=== PATIENT | male | born 1935 | race Caucasian/White ===

== ENCOUNTER → 2016-10-11 | Outpatient (CLI) | payer MEDICARE, OTHER | END | disposition home or self-care (01) | LOC: GMAB 14:37 | PROVIDERS: ATTEND Family Medicine | DX: R41.82 Altered mental status, unspecified (principal) ==

== ENCOUNTER → 2016-10-18 | Outpatient (CLI) | payer MEDICARE, OTHER ==
--- NOTE | 2016-10-18 14:48 | MRI ---
EXAM DESCRIPTION: Brain w/oContrast CLINICAL HISTORY: ALTERED MENTAL STATUS COMPARISON: None available TECHNIQUE: Non contrast MRI of the brain is performed according to our usual protocol including multiplanar multi sequence technique. FINDINGS: The midline structures demonstrate some pontine and cerebellar atrophy. This is confirmed on the axial images. Multiple cerebellar lacunar infarcts noted bilaterally. There is moderate involutional changes of the cerebrum. This results in prominence of the sulci and ventricles. Periventricular white matter disease noted. No mass, mass effect or shift. No evidence of an acute infarct on today's study. The gradient sequences reveal no evidence of hemorrhage. Flow voids are maintained on today's study. IMPRESSION: Today's exam demonstrates fairly advanced involutional changes along with periventricular white matter disease and multiple bilateral cerebellar hemisphere lacunar infarcts. No acute infarct on today's exam. Electronically signed by: Ralph Hernandez MD 10/18/2016 2:47 PM [employer]
== END | disposition home or self-care (01) ==
LOC: MRI 10:00
PROVIDERS: ATTEND Family Medicine
DX: R41.82 Altered mental status, unspecified (principal)

== ENCOUNTER → 2016-11-14 | Outpatient (CLI) | payer MEDICARE, OTHER ==
--- NOTE | 2016-11-14 11:49 | US ---
EXAM DESCRIPTION: Abdomen,Complete CLINICAL HISTORY: 80 years,Male,ABDOMEN PAIN COMPARISON: None TECHNIQUE: Multiple real-time sonographic images were obtained of the entire abdomen. FINDINGS: The liver demonstrates normal echotexture. No masses. No cysts. The liver craniocaudal length is not measured cm. The gallbladder demonstrates an anechoic lumen. There are no stones. There is no pericholecystic fluid. The gallbladder wall thickness is unremarkable. No intrahepatic biliary ductal dilatation. The common bile duct measures four mm. The right kidney demonstrates normal cortical echotexture and thickness. There is a large stone measuring about 1.4 x 1.2 x 0.8 cm in the midpole. The right kidney measures 10.2 cm in length. The left kidney demonstrates normal cortical echotexture and thickness. There are no stones, hydronephrosis, or masses. Small parapelvic cyst measuring up to 2.4 x 1 cm but appears to be two or three cyst or a septated cyst. The left kidney measures 9.6 cm in length. The spleen demonstrates normal echotexture. No masses. It measures 8.2 cm in craniocaudal length. The visualized portions of the head and body of the pancreas are unremarkable. No free-fluid in the abdomen. The aorta is unremarkable for age. IMPRESSION: Large echogenic lesion in the midpole right kidney most likely a large stone. And a few small peripelvic midpole cyst in the left kidney.. Electronically signed by: Ariel Dallas MD 11/14/2016 11:49 AM CDT
== END ==
LOC: US 08:58
PROVIDERS: ATTEND Family Medicine
DX: R10.31 Right lower quadrant pain (principal); N28.9 Disorder of kidney and ureter, unspecified

== ENCOUNTER → 2016-11-24 | Outpatient (CLI) | payer MEDICARE, OTHER ==
--- NOTE | 2016-11-25 10:37 | CT ---
Procedure: CT ABDOMEN PELVIS WITHOUT THEN WITH IV CONTRAST Exam date: 11/24/2016 12:00 AM CDT Ordering Provider: LAURENCE CUENCA Clinical Indication: RENAL MASS Comparison: Abdominal ultrasound on November 14, 2016 Technique: Multiple axial helical CT images of the abdomen and pelvis were obtained with and without IV contrast. Oral contrast was not administered. Coronal and sagittal reformatted images were also obtained. Findings: Lung bases are clear and the heart apex within normal limits. No inferior mediastinal abnormality. Inferior osseous structures of the thorax are unremarkable. Bilateral large nonobstructing renal calculi without hydronephrosis or solid enhancing renal mass. No cysts cysts or perinephric fluid collection seen. There is hemiatrophy of the left kidney. The remaining solid abdominal viscera are unremarkable. Stomach and small bowel bowel are within normal limits. Colonic diverticulosis without evidence of diverticulitis. No peritoneal or retroperitoneal masses or adenopathy. No free fluid or pneumoperitoneum. Urinary bladder is unremarkable. No pelvic masses or adenopathy seen. Perirectal fat planes are preserved. Osseous structures of the abdomen and pelvis are nonacute. Advanced lumbar spondylosis. Atherosclerotic calcifications without aneurysmal dilatation. Impression: 1. Bilateral nonobstructing renal calculi without hydronephrosis or renal mass lesion. 2. Other chronic incidental findings as above. Electronically signed by: Nico Leung MD 11/25/2016 10:37 AM CDT
== END | disposition home or self-care (01) ==
LOC: CT 07:54
PROVIDERS: ATTEND Family Medicine
DX: D41.02 Neoplasm of uncertain behavior of left kidney (principal); E83.52 Hypercalcemia

== ENCOUNTER → 2017-03-09 | Outpatient (CLI) | payer MEDICARE, OTHER ==
--- NOTE | 2017-03-12 09:06 | MRI ---
EXAM DESCRIPTION: Brain w/oContrast CLINICAL HISTORY: ALZHEIMERS DEMENTIA COMPARISON: 18 October 2016 TECHNIQUE: Multiplanar multisequence noncontrast imaging FINDINGS: No midline congenital brain anomaly is detected. The exam demonstrates normal flow void in the cerebral vasculature. The sinuses are clear. The orbits as imaged are normal. No mass lesions or mass effect are observed. Mild periventricular increased T2 signal is observed consistent with ischemic demyelination. Exam reveals mild central and cortical atrophy. No diffusion-weighted abnormality is seen. IMPRESSION: Senescent changes are observed. No acute parenchymal abnormality is detected. No significant interval changes noted. Electronically signed by: Ariel Navas MD 03/12/2017 9:04 AM CDT
== END | disposition home or self-care (01) ==
LOC: MRI 07:54
PROVIDERS: ATTEND Family Medicine
DX: G30.9 Alzheimer's disease, unspecified (principal)

== ENCOUNTER → 2017-03-15 | Outpatient (CLI) | payer MEDICARE, OTHER | END | disposition home or self-care (01) | LOC: GMAB 12:27 | PROVIDERS: ATTEND Family Medicine | DX: E83.52 Hypercalcemia (principal); M62.81 Muscle weakness (generalized) ==

== ENCOUNTER → 2017-07-11 | Outpatient (CLI) | payer MEDICARE, OTHER | END | disposition home or self-care (01) | LOC: GMAB 17:23 | PROVIDERS: ATTEND Family Medicine | DX: R29.898 Other symptoms and signs involving the musculoskeletal system (principal) ==

== ENCOUNTER → 2017-11-06 | Outpatient (CLI) | payer MEDICARE, OTHER | LOC: GMAB 10:51 | PROVIDERS: ATTEND Family Medicine | DX: I10 Essential (primary) hypertension (principal); Z12.5 Encounter for screening for malignant neoplasm of prostate | CPT/HCPCS: 84443; G0103 ==

== ENCOUNTER → 2018-08-27 | Outpatient (CLI) | payer MEDICARE, OTHER ==
--- NOTE | 2018-08-27 21:22 | US ---
US THYROID CLINICAL STATEMENT: THYROID NODULE. . No palpable mass. No history of prior thyroid surgery or therapy. COMPARISON: None FINDINGS: Size right thyroid lobe: 3.9 x 2.6 x 1.3 cm Size left thyroid lobe: 4.7 x 1.6 x 1.4 cm Size isthmus: 0.3 cm Estimated total number of nodules greater than or equal to 1 cm: None Nodule 1: Size: 0.8 x 0.8 x 0.7 cm Location: Right Mid Composition: cystic or completely cystic: 0 points Echogenicity: anechoic: 0 points Shape: wider than tall: 0 points Margins: smooth: 0 points Echogenic foci: none: 0 points ACR Total Points: 0; ACR TI-RADS risk category: TR1 - benign nodule Nodule 2: Size: 0.4 x 0.4 x 0.4 cm Location: Right Mid Composition: cystic or completely cystic: 0 points Echogenicity: anechoic: 0 points Shape: wider than tall: 0 points Margins: smooth: 0 points Echogenic foci: none: 0 points ACR Total Points: 0; ACR TI-RADS risk category: TR1 - benign nodule Nodule 3: Size: 0.5 x 0.4 x 0.3 cm Location: Right Upper Composition: cystic or completely cystic: 0 points Echogenicity: anechoic: 0 points Shape: wider than tall: 0 points Margins: smooth: 0 points Echogenic foci: none: 0 points ACR Total Points: 0; ACR TI-RADS risk category: TR1 - benign nodule Nodule 4: Size: 0.3 x 0.3 x 0.2 cm Location: Left Lower Composition: cystic or completely cystic: 0 points Echogenicity: anechoic: 0 points Shape: wider than tall: 0 points Margins: smooth: 0 points Echogenic foci: none: 0 points ACR Total Points: 0; ACR TI-RADS risk category: TR1 - benign nodule The tissue surrounding the thyroid gland showed no evidence of dominant solid mass or distinct cyst. No parenchymal edema or large calcifications. No overlying skin changes. Normal vascularity. IMPRESSION: 1. Multiple cysts bilaterally. ACR TI-RADS 2017 Category TR1. Recommend: No further follow-up.. Recommendations based upon [employer] Best Practice recommendations and ACR TI-RADS 2017 guidelines. Please see below*. 2. Soft tissue around the thyroid gland is unremarkable. *ACR TI-RADS 2017 Recommendations: TR1: No FNA or follow up TR2: No FNA or follow up TR3: FNA if >/= 2.5 cm, follow up if 1.5 - 2.4 cm in 1, 3, and 5 years TR4: FNA if >/= 1.5 cm, follow up if 1.0 - 1.4 cm in 1, 2, 3, and 5 years TR5: FNA if >/= 1.0 cm, follow up if 0.5 - 0.9 cm every year for 5 years ACR TI-RADS recommends that no more than two nodules with the highest ACR TI-RADS total point should be biopsied and no more than four nodules should be followed. Electronically signed by: Nish Oconnor MD 08/27/2018 9:20 PM [facility]
== END ==
LOC: US 14:20
PROVIDERS: ATTEND Family Medicine
DX: E04.1 Nontoxic single thyroid nodule (principal)

== ENCOUNTER → 2019-06-04 | Outpatient (CLI) | payer MEDICARE, OTHER | LOC: GMAE 12:44 | PROVIDERS: ATTEND Family Medicine | DX: I10 Essential (primary) hypertension (principal); E78.2 Mixed hyperlipidemia ==

== ENCOUNTER → 2020-06-16 | Outpatient (CLI) | payer MEDICARE, OTHER | LOC: GMAE 14:47 | PROVIDERS: ATTEND Family Medicine | DX: I10 Essential (primary) hypertension (principal); Z12.5 Encounter for screening for malignant neoplasm of prostate; N39.0 Urinary tract infection, site not specified; R73.09 Other abnormal glucose; E78.2 Mixed hyperlipidemia | CPT/HCPCS: 84443; 87086; G0103 ==

== ENCOUNTER → 2020-06-17 | Outpatient (CLI) | payer MEDICARE, OTHER ==
--- NOTE | 2020-06-18 15:27 | US ---
EXAM DESCRIPTION: Renal: Ultrasound. CLINICAL HISTORY: 84 years Male ACUTE KIDNEY FAILURE. Previous bladder cancer. COMPARISON: None TECHNIQUE: Transcutaneous scanning: Two-dimensional and Doppler modes. FINDINGS: Right kidney measures 9.1 x 5.3 x 5.3 cm; volume 131 ml. Mid-renal cortical thickness 12 mm. .echogenicity. No hydronephrosis No echogenic stones. Echogenic stone 7.7 mm with acoustic shadowing lobulated contour of the kidney with no perinephric fluid. Normal vascularity. Proximal ureter . Left kidney measures 8.0 x 5.5 x 5.5 cm; volume 124.8 ml. Mid-renal cortical thickness 9.6 mm.. Increased cortical echogenicity No hydronephrosis. No echogenic stones. Lobulated contour of the kidney with no perinephric fluid. 6.5 mm echogenic stone with acoustic shadowing. 3.2 mm echogenic stone with acoustic shadowing. Normal vascularity.. Proximal ureter not visualized.. Urinary bladder was visualized. Prevoid volume 90.4 mL. Irregular wall thickening. Ureteral jet in the bladder ureteral jets not seen by color Doppler. Patient did not void. Abdominal aorta: not measured. IMPRESSION: 1. Bilateral kidneys with thinning of the cortex and lobulated capsules. Increased echogenicity of the cortex. This indicates medical renal disease. Bilateral echogenic stones; 7.7 mm in the right kidney and 6.5 mm and the left kidney. No hydronephrosis or perirenal fluid bilaterally. 2. Irregular wall thickening of the urinary bladder. Electronically signed by: Nish Oconnor MD 06/18/2020 3:26 PM [facility]
== END ==
LOC: US 13:59
PROVIDERS: ATTEND Family Medicine
DX: N17.9 Acute kidney failure, unspecified (principal); N28.9 Disorder of kidney and ureter, unspecified; N32.89 Other specified disorders of bladder; N20.0 Calculus of kidney

== ENCOUNTER → 2020-07-02 | Outpatient (CLI) | payer MEDICARE, OTHER | LOC: BFHH 13:09 | PROVIDERS: ATTEND Family Medicine | DX: N39.0 Urinary tract infection, site not specified (principal); I10 Essential (primary) hypertension; R29.6 Repeated falls; I48.0 Paroxysmal atrial fibrillation; I35.0 Nonrheumatic aortic (valve) stenosis ==

== ENCOUNTER 2020-07-13 17:02 | Emergency (ER) | payer MEDICARE, OTHER ==
--- NOTE | 2020-07-13 19:00 | ED.PDOC ---
History of Present Illness - General Chief Complaint: Respiratory Problem Stated Complaint: COVID + Time Seen by Provider: 07/13/20 19:00 Source: family, RN/MD Exam Limitations: no limitations - History of Present Illness Initial Comments: 10 D OF WEAKNESS. POS COVID AT OUTSIDE LAB. NO SOB. NO COUGH. H/O SEVERE DEMENTIA. PRESENT IN ER, WHO IS BEING SEEN FOR POS COVID WELL. DR. FREEDMAN CALLED ME AND SENT THEM OVER. HE REQUESTS W/U AND ADMISSION. Timing/Duration: constant Severity: moderate Improving Factors: nothing Worsening Factors: nothing Associated Symptoms: weakness Allergies/Adverse Reactions: Allergies NO KNOWN ALLERGY Allergy (Verified 07/13/20 18:08) Home Medications: Ambulatory Orders Amitriptyline HCl 01/11/16 Calcium 01/11/16 Cardura 01/11/16 Fish Oil 01/11/16 Fish Oil 01/11/16 Lodine 01/11/16 Metanx 3-90.314-2-35 mg 01/11/16 Multi Vitamin Daily 01/11/16 Prilosec 01/11/16 Tramadol HCl 01/11/16 Vitamin E 01/11/16 Review of Systems - Review of Systems Unable to Obtain Due To: dementia Past Medical History (General) - Patient Medical History Hx Stroke: No Hx Cardiac Disorders: Yes - aortic valve replaced Hx Congestive Heart Failure: No Hx Diabetes: No Hx Cancer: Yes - skin cancers; bladder CA - tuberculosis TB - Vaccination History Hx Influenza Vaccination: Yes - 2014 Hx Pneumococcal Vaccination: Yes - Social History Hx Tobacco Use: Yes - Quit 1979 - Activities of Daily Living Hospice Agency (if applicable):: None - Female History Patient is a Female of Child Bearing Age (10 -59 yrs old): No Family Medical History - Family History Father Family History: No Known Living Status: Physical Exam - Physical Exam General Appearance: Alert, Other - FATIGUED Eye Exam: bilateral normal Ears, Nose, Throat: hearing grossly normal, normal pharynx Neck: non-tender, supple Respiratory: lungs clear, normal breath sounds, no respiratory distress, no accessory muscle use Cardiovascular/Chest: normal peripheral pulses, regular rate, rhythm Peripheral Pulses: radial,right: 2+, radial,left: 2+ Gastrointestinal/Abdominal: non tender, soft Rectal Exam: deferred Back Exam: no CVA tenderness, no vertebral tenderness Extremity: non-tender, normal inspection, no pedal edema, no calf tenderness Neurologic: no motor/sensory deficits, normal mood/affect Skin Exam: normal color, warm/dry Lymphatic: no adenopathy Progress - Results/Orders Results/Orders: COVID POS PER OUTSIDE LAB. ELEVATED LABS C/W COVID - LDH, D-DIMER, CRP, FIBRINOGEN. (SEE SOME OF THE LAB OBTAINED OUTPT BY DR. FREEDMAN TODAY.) WNL: MAG, CPK, PTT, TROP. CXR NO PNE. PER DR. FREEDMAN'S RECOMMENDATION, I WAS ADMITTING OBSERVATION FOR COVID PNE, WEAKNESS, FATIGUE, HIGH FALL RISK. 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 PT'S REFUSED ADMISSION FOR HERSELF AND HER (BOTH IN ER FOR COVID) SINCE THERE IS NOT A DOUBLE PERSON ROOM. ( HAS SEVERE DEMENTIA, SO SHE DECIDES FOR THEM.) VALENTIN AND I BOTH TALKED WITH THE PTS AND URGED AND RECOMMENDED THEY BE ADMITTED AND EXPLAINED THE ROOMS WOULD BE ADJACENT TO EACH OTHER. SHE REFUSED ON THEIR BEHALF. WE WARNED OF RISKS OF FALLS AND INJURY, AND RAPIDLY WORSENING RESPIRATORY STATUS. SHE STILL REFUSED ADMISSION. THUS WE DISCHARGED. I ASKED THEM TO F/U WITH DR. FREEDMAN TOMORROW TO ENSURE THEY ARE NOT DETERIORATING. Departure - Departure Clinical Impression: COVID-19 virus detected, Weakness, Elevated d-dimer, Elevated C-reactive protein (CRP) Fatigue Qualifiers: Fatigue type: other Qualified Code(s): R53.83 - Other fatigue Disposition: Discharge to Home or Self Care Condition: Good Departure Forms: ED Discharge - Pt. Copy, Patient Portal Self Enrollment Instructions: Coronavirus Disease 2019 (COVID-19) Diet: resume usual diet Activity: other - Get plenty of rest. Referrals: ENEDELIA FREEDMAN MD [Primary Care Provider] - 1-5 Days Home Medications: Ambulatory Orders Amitriptyline HCl 01/11/16 Calcium 01/11/16 Cardura 01/11/16 Fish Oil 01/11/16 Fish Oil 01/11/16 Lodine 01/11/16 Metanx 3-90.314-2-35 mg 01/11/16 Multi Vitamin Daily 01/11/16 Prilosec 01/11/16 Tramadol HCl 01/11/16 Vitamin E 01/11/16 Additional Instructions: Drink plenty of fluids. Please return to the ER immediately if you develop troubles breathing or other worsening symptoms.
--- NOTE | 2020-07-13 19:45 | RAD ---
EXAM: Chest,1 View CLINICAL INDICATION: Weakness COMPARISON: There is no previous study for comparison. FINDINGS: A single view of the chest was obtained. The heart size is normal. Sternotomy wires are noted. The pulmonary vascularity is unremarkable. The lungs are clear. There is no consolidation, infiltrate, pleural effusion, or pneumothorax. IMPRESSION: No evidence of active pulmonary disease. Electronically signed by: Ismael Carbajal MD 07/13/2020 7:43 PM [employer]
[2020-07-13 20:16] VITALS: O2SAT 94
[2020-07-13 21:43] VITALS: BP 132/70; TEMP 97.5
== END 2020-07-13 21:43 | disposition home or self-care (01) ==
LOC: ER 17:02
DX: U07.1 COVID-19 (principal); R79.89 Other specified abnormal findings of blood chemistry; R79.82 Elevated C-reactive protein (CRP); F03.90 Unspecified dementia, unspecified severity, without behavioral disturbance, psychotic disturbance, mood disturbance, and anxiety; Z87.891 Personal history of nicotine dependence; Z85.828 Personal history of other malignant neoplasm of skin; Z85.51 Personal history of malignant neoplasm of bladder; Z86.11 Personal history of tuberculosis; Z95.2 Presence of prosthetic heart valve

== ENCOUNTER 2020-07-14 10:37 | Observation (INO) | payer MEDICARE, OTHER ==
[2020-07-14] MEDS ORDERED: AZITHROMYCIN IV 500 MG in SODIUM CHLORIDE 0.9% 250ML 250 ML IVPB ONE (11:06)
[2020-07-14] MEDS ORDERED: DEXAMETHASONE INJ 10 MG/ML VIAL IV ONE (11:06)
--- NOTE | 2020-07-14 11:42 | RAD ---
EXAM DESCRIPTION: Chest,1 View CLINICAL HISTORY: covid, hypoxia FINDINGS/ IMPRESSION: Comparison 07/13/2020 Prior cardiac surgery. Heart size is normal. Tortuous atherosclerotic aorta Faint groundglass opacity in the right lung base, either the middle or lower lobe. This may relate to developing viral pneumonia Lungs are mildly hyperinflated with paucity of vasculature in the apices consistent with emphysema No infiltrate in the left lung base. Mild volume loss Electronically signed by: Jairon Cantu MD 07/14/2020 11:41 AM [facility]
[2020-07-14] MEDS ORDERED: REMDESIVIR 200 MG in SODIUM CHLORIDE 0.9% 250ML 250 ML IVPB ONE (11:44)
[2020-07-14] MEDS ORDERED: SODIUM CHLORIDE 0.9% 1000ML 1,000 ML IVS ONE (12:40)
--- NOTE | 2020-07-14 12:43 | ED.PDOC ---
History of Present Illness - General Chief Complaint: General Stated Complaint: +COVID,weakness Time Seen by Provider: 07/14/20 10:51 Source: patient, family Exam Limitations: clinical condition - History of Present Illness Initial Comments: The patient is a 84-year-old male presented to emergency room with his again for the second time the last 24 hours. They left AGAINST MEDICAL ADVICE last night. It was recommended that they be admitted for coronavirus pneumonia. They were unwilling to do so at that time however since then the has continued to feel worse. This patient, the is having significant hypoxia and fatigue and some mild altered mental status over his baseline dementia. He does have a significant cough. They have been sick for 3 to 4 days. They were diagnosed positive with coronavirus 4 days ago now. Oral intake has decreased according to his . The patient is a poor historian. No vomiting but questionable nausea. Questionable fevers. The patient desaturates down to 85% at times at rest on room air. For the most part he ranges between 88 and 91% on room air while awake. The patient does have coarse breath sounds bilaterally but good air movement. Minimal increased work of breathing at this point. Timing/Duration: other - Around 4 days Severity: moderate Improving Factors: rest Worsening Factors: movement Associated Symptoms: cough, loss of appetite, malaise, shortness of breath, weakness Allergies/Adverse Reactions: Allergies NO KNOWN ALLERGY Allergy (Verified 07/13/20 18:08) Home Medications: Ambulatory Orders Amitriptyline HCl 01/11/16 Calcium 01/11/16 Cardura 01/11/16 Fish Oil 01/11/16 Fish Oil 01/11/16 Lodine 01/11/16 Metanx 3-90.314-2-35 mg 01/11/16 Multi Vitamin Daily 01/11/16 Prilosec 01/11/16 Tramadol HCl 01/11/16 Vitamin E 01/11/16 Review of Systems - Review of Systems Review of Systems: 07/14/20 12:43 Review of systems is given by the as the patient does have significant dementia. Constitutional: States: malaise, weakness EENTM: States: no symptoms reported Respiratory: States: cough, short of breath Cardiology: States: no symptoms reported Gastrointestinal/Abdominal: States: other Genitourinary: States: no symptoms reported Musculoskeletal: States: no symptoms reported Skin: States: no symptoms reported Neurological: States: no symptoms reported - Possibly some mild increased confusion over baseline Endocrine: States: no symptoms reported All other Systems: No Change from Baseline Past Medical History (General) - Patient Medical History Hx Stroke: No Hx Dementia: Yes Hx Cardiac Disorders: Yes - aortic valve replaced Hx Congestive Heart Failure: No Hx Diabetes: No Hx Cancer: Yes - skin cancers; bladder CA - tuberculosis TB - Vaccination History Hx Influenza Vaccination: Yes Hx Pneumococcal Vaccination: Yes - Social History Hx Tobacco Use: Yes Family Medical History - Family History Father Family History: No Known Living Status: Physical Exam - Physical Exam General Appearance: Alert, Frail, Ill Appearing Ears, Nose, Throat: hearing grossly normal - Chronically decreased bilaterally, normal pharynx Neck: full range of motion, supple Respiratory: no respiratory distress, no accessory muscle use, rhonchi Cardiovascular/Chest: normal peripheral pulses, regular rate, rhythm, no edema Peripheral Pulses: radial,right: 2+, radial,left: 2+ Gastrointestinal/Abdominal: non tender, soft Rectal Exam: deferred Back Exam: no CVA tenderness, no vertebral tenderness Extremity: normal range of motion, non-tender, normal inspection, no pedal edema, normal capillary refill 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, alert, normal mood/affect, other - Baseline dementia Skin Exam: normal color Comments: Vital Signs - 24 hr 07/14/20 07/14/20 07/14/20 11:04 11:35 12:16 Temperature 97.7 F Pulse Rate [ 71 62 Right Brachial] Respiratory 20 18 20 Rate Blood Pressure 117/62 123/66 [Right Arm] O2 Sat by Pulse 91 L 93 L Oximetry 07/14/20 12:30 Temperature Pulse Rate [ 66 Right Brachial] Respiratory 16 Rate Blood Pressure 118/66 [Right Arm] O2 Sat by Pulse 94 L Oximetry Progress - Progress Progress: 07/14/20 12:46 The patient is an 84-year-old male presented emergency room secondary to progressive weakness and shortness of breath from coronavirus pneumonia. Patient does have significant dementia. He is hypoxic. He is being started on azithromycin, dexamethasone, oxygen and remdesivir. The patient does appear to have some acute on chronic renal failure and was receiving a one-time only 1 L fluid bolus. We will have to be careful not to fluid overload him. I suspect this is due to significant decreased oral intake over the last couple of days while he has not been feeling well. Consideration for further anticoagulation on this patient should be taken seriously as the patient is a significant fall risk given his dementia. We are going to try and have the patient room with his who is also being admitted as she is a significant calming effect for him. This would normally not be allowed otherwise. Admit for continued care. catherine portillo [phone] - Results/Orders Results/Orders: Chest x-ray is consistent with a viral pneumonia. EKG shows normal sinus rhythm at 68 bpm. Mild left axis deviation and poor R wave progression in anterior leads. No definitive ST segment or T wave changes indicative of acute ischemia. Normal QT interval. Laboratory Tests 07/14/20 07/14/20 07/14/20 11:29 11:29 11:29 WBC 9.7 RBC 4.40 L Hgb 14.0 Hct 41.6 L MCV 94.6 H MCH 31.9 H MCHC 33.7 RDW 12.8 Plt Count 164 MPV 10.1 Absolute Neuts (auto) 7.80 H Absolute Lymphs (auto) 0.50 L Absolute Monos (auto) 1.30 H Absolute Eos (auto) 0.00 Absolute Basos (auto) 0.10 Neutrophils % 80.1 H Lymphocytes % 5.6 L Monocytes % 13.7 H Eosinophils % 0.0 L Basophils % 0.6 PT 10.2 INR 1.03 PTT (SP) 30.1 Fibrinogen 473 H D-Dimer, Quantitative 821.0 H* Sodium 138 Potassium 4.5 Chloride 107 Carbon Dioxide 21 Anion Gap 14.5 BUN 35 H Creatinine 2.22 H BUN/Creatinine Ratio 15.8 Random Glucose 160 H Serum Osmolality 287.1 Lactic Acid Calcium 9.3 Magnesium 2.0 Total Bilirubin 0.6 AST 31 ALT 19 Alkaline Phosphatase 69 LD Total 234 H CK-MB (CK-2) 3.2 CK-MB (CK-2) % Not Reportable Troponin I 0.03 B-Natriuretic Peptide 88.7 Serum Total Protein 7.0 Albumin 3.3 Globulin 3.7 H Albumin/Globulin Ratio 0.9 L Amylase 66 Lipase 41 07/14/20 11:29 WBC RBC Hgb Hct MCV MCH MCHC RDW Plt Count MPV Absolute Neuts (auto) Absolute Lymphs (auto) Absolute Monos (auto) Absolute Eos (auto) Absolute Basos (auto) Neutrophils % Lymphocytes % Monocytes % Eosinophils % Basophils % PT INR PTT (SP) Fibrinogen D-Dimer, Quantitative Sodium Potassium Chloride Carbon Dioxide Anion Gap BUN Creatinine BUN/Creatinine Ratio Random Glucose Serum Osmolality Lactic Acid 1.7 Calcium Magnesium Total Bilirubin AST ALT Alkaline Phosphatase LD Total CK-MB (CK-2) CK-MB (CK-2) % Troponin I B-Natriuretic Peptide Serum Total Protein Albumin Globulin Albumin/Globulin Ratio Amylase Lipase Departure - Departure Clinical Impression: Pneumonia due to COVID-19 virus Acute renal failure Qualifiers: Acute renal failure type: unspecified Qualified Code(s): N17.9 - Acute kidney failure, unspecified Disposition: Admit Patient Departure Forms: ED Discharge - Pt. Copy, Patient Portal Self Enrollment Referrals: ENEDELIA FREEDMAN MD [Primary Care Provider] - 1-2 Weeks Home Medications: Ambulatory Orders Amitriptyline HCl 01/11/16 Calcium 01/11/16 Cardura 01/11/16 Fish Oil 01/11/16 Fish Oil 01/11/16 Lodine 01/11/16 Metanx 3-90.314-2-35 mg 01/11/16 Multi Vitamin Daily 01/11/16 Prilosec 01/11/16 Tramadol HCl 01/11/16 Vitamin E 01/11/16 Decision To Admit - Decistion To Admit Decision to Admit Reason: Medical Nature Decision to Admit Date: 07/14/20 Decision to Admit Time: 12:48
--- NOTE | 2020-07-14 13:00 | HP ---
SUPERVISING PHYSICIAN: Zain Braga MD CHIEF COMPLAINT: Shortness of breath. HISTORY OF PRESENT ILLNESS: This is an 84-year-old male patient who came to the Emergency Room with increased generalized weakness and shortness of breath. The patient was diagnosed several days ago. I do not know the exact date. The patient has significant dementia, so does not really answer his own questions, but his states he was sick a couple of days before Thanksgiving, but was not tested until about 4 days ago. He came to the ER last night and O2 saturations were pretty decent. They were offered admission, but declined. The reason for the decline was that the states he has significant dementia and they cannot be in separate rooms and at that time, there was not a double room. I discussed with them getting Remdesivir and dexamethasone in the ER and going home and see how they did. Apparently they did not get those medicines in the ER and left before they were given. They went home and then he was noted to have coarse breath sounds and desaturations at home, so came back to the Emergency Room. Further workup in the Emergency Room included repeat labs which showed a normal white count of 9.7, but a mild shift of 80.1% neutrophils. D- dimer 821. Elevated BUN and creatinine of 35 and 2.2, respectively on chemistry. CRP 5.4. The patient was referred for admission for those reasons. At the time admission, the patient is alert, confused, but that is chronic for him. He does not appear to be in any active distress at this time. O2 saturation is 93% on 2 liters via nasal cannula. PAST MEDICAL HISTORY: 1. Atrial fibrillation. 2. Carotid artery disease. 3. Aortic stenosis. 4. Benign prostatic hypertrophy. 5. Renal stones. 6. Osteoporosis. PAST SURGICAL HISTORY: 1. Appendectomy. 2. Bilateral cataract removal. 3. Bilateral knee replacement. 4. Left elbow surgery. 5. Colonoscopy. MEDICATIONS: Please see medication reconciliation list once verified in the computer. ALLERGIES: NO KNOWN DRUG ALLERGIES. FAMILY HISTORY: Reviewed and noncontributory to the patient's current condition. SOCIAL HISTORY: The patient has a distant history of smoking. No drinking, no illicit drugs. REVIEW OF SYSTEMS: CONSTITUTIONAL: Positive for fever, chills. RESPIRATORY: Positive for cough, positive for shortness of breath. GASTROINTESTINAL: No nausea, vomiting, diarrhea, constipation or abdominal pain. GENITOURINARY: No dysuria, frequency or flank pain. ENDOCRINE: No polydipsia, polyuria or polyphagia. No heat or cold intolerance. NEUROLOGIC: No syncope, paresthesias or seizures. SKIN: No rashes, lesions or wounds. PHYSICAL EXAMINATION: VITAL SIGNS: Blood pressure 116/69, heart rate 72, respiratory rate 16, temperature 98.4, oxygen saturation 93% on 2 liters via nasal cannula. GENERAL: Mr. Medellin is an 84-year-old male who is in no active distress. NEUROLOGIC: The patient is alert and oriented. LUNGS: Diminished sounds and rales bilaterally. CARDIOVASCULAR: Regular rate and rhythm. Normal S1, S2. ABDOMEN: Soft. Positive bowel sounds. GENITOURINARY: Deferred. EXTREMITIES: Lower extremities with no edema. Pulses 2+. Capillary refill is less than 2 seconds. LABORATORY: Labs as discussed in history of present illness. RADIOLOGY: Chest x-ray repeated shows a faint ground glass opacity in the right lung base. IMPRESSION: 1. COVID pneumonitis. 2. Acute on chronic kidney disease. 3. History of atrial fibrillation. 4. Hypertension. 5. History of aortic stenosis. PLAN: The patient will be admitted for COVID pneumonitis. I placed the patient on Remdesivir and dexamethasone along with scheduled empiric antibiotics. The patient has been placed on scheduled bronchodilator therapy as well as Mucinex. We will give a little bit of IV fluids due to the acute kidney injury. We will resume home medications once they are verified in the computer. Aggressive pulmonary hygiene along with incentive spirometry as well. #[id number] [facility]
[2020-07-14] MEDS: ALBUTEROL INHALER 64 PUFF/8GM INH SCH ×2 (14:35→22:40)
[2020-07-14] MEDS ORDERED: SODIUM CHLORIDE 0.9% (FLUSH) 10 ML SYG IV PRN (14:41)
[2020-07-14] MEDS ORDERED: LACTATED RINGERS 1,000 ML IVS PRN (14:46)
[2020-07-14] MEDS ORDERED: IV SET AND CAP CHANGE INJ INJ SCH (15:00)
[2020-07-14] MEDS: ENOXAPARIN SODIUM 30 MG/0.3 ML SYG SUBCU SCH (16:52)
[2020-07-14] MEDS ORDERED: guaiFENesin ER TAB 600 MG TAB ONE (19:17)
[2020-07-14] MEDS: guaiFENesin ER TAB 600 MG TAB PO SCH (20:34)
--- NOTE | 2020-07-15 07:55 | RAD ---
EXAM DESCRIPTION: Chest,1 View CLINICAL HISTORY: COVID COMPARISON: July 14, 2020 IMPRESSION: Single AP portable upright view of the chest shows enlargement of the cardiomediastinal silhouette without pulmonary vascular congestion. Sternotomy wires are again seen. Apical lordotic projection. Mild areas of interstitial and groundglass airspace densities in the right mid to lower chest are again seen similar to previous exam suggesting pneumonia versus atelectasis. No new infiltrates are seen. Mild emphysematous changes to the lungs are again seen. No pleural effusion or pneumothorax.. Electronically signed by: Mark Shell MD 07/15/2020 7:53 AM [employer]
[2020-07-15] MEDS ORDERED: DEXAMETHASONE INJ 10 MG/ML VIAL ONE (08:48)
[2020-07-15] MEDS: ALBUTEROL INHALER 64 PUFF/8GM INH SCH ×4 (08:50→21:00)
[2020-07-15] MEDS ORDERED: TURMERIC 500 MG PO SCH (09:00)
[2020-07-15] MEDS ORDERED: COENZYME Q10 100 MG PO SCH (09:00)
[2020-07-15] MEDS ORDERED: DEXAMETHASONE INJ 4 MG/ML VIAL IV SCH (09:00)
[2020-07-15] MEDS: guaiFENesin ER TAB 600 MG TAB PO SCH ×2 (09:56→20:14)
[2020-07-15] MEDS: REMDESIVIR 100 MG in SODIUM CHLORIDE 0.9% 250ML 250 ML IVPB SCH (09:56)
[2020-07-15] MEDS: DEXAMETHASONE INJ 10 MG/ML VIAL IV SCH (09:56)
[2020-07-15] MEDS: CALCIUM CARBONATE-VITAMIN D 500 MG TAB PO SCH ×2 (09:57→20:14)
[2020-07-15] MEDS: MAGNESIUM OXIDE 400 MG TAB PO SCH (09:57)
[2020-07-15] MEDS ORDERED: SODIUM CHLORIDE 0.9% 250ML 250 ML ONE (10:43)
[2020-07-15] MEDS ORDERED: AZITHROMYCIN IV 500 MG VIAL IVPB ONE (10:43)
[2020-07-15] MEDS ORDERED: cefTRIAXone SODIUM 1 GM VIAL ONE (10:43)
[2020-07-15] MEDS ORDERED: SODIUM CHL 0.9% 50ML MIN-BAG+ 50 ML IVPB ONE (10:44)
[2020-07-15] MEDS: ENOXAPARIN SODIUM 30 MG/0.3 ML SYG SUBCU SCH (14:28)
[2020-07-15] MEDS ORDERED: AZITHROMYCIN IV 500 MG in SODIUM CHLORIDE 0.9% 250ML 250 ML IVPB SCH (15:00)
[2020-07-15] MEDS ORDERED: cefTRIAXone SODIUM 1 GM in SODIUM CHL 0.9% 50ML MIN-BAG+ 50 ML IVPB SCH (16:00)
[2020-07-15] MEDS ORDERED: METOPROLOL SUCCINATE XL 25 MG TAB PO ONE (19:18)
[2020-07-15] MEDS ORDERED: ASPIRIN (CHEWABLE) 81 MG TAB ONE (19:18)
[2020-07-15] MEDS ORDERED: NON-FORMULARY MEDICATION 1 EA MIS (Memantine Hcl-Donepezil Hcl [Namzaric 28-10 Mg] 1 CAP) PO SCH (21:00)
[2020-07-15] MEDS ORDERED: METOPROLOL SUCCINATE XL 25 MG TAB PO SCH (21:00)
[2020-07-15] MEDS ORDERED: ASPIRIN (CHEWABLE) 81 MG TAB PO SCH (21:00)
[2020-07-15] MEDS ORDERED: LACTATED RINGERS 0 ML ONE (21:08)
[2020-07-16 06:06] VITALS: TEMP 98.1
--- NOTE | 2020-07-16 08:22 | PN ---
SUPERVISING PHYSICIAN: Zain Braga MD DATE: 07/15/20 SUBJECTIVE: The patient is sitting up in bed. He has no complaints. His is also in the same room and she said he has had no issues as far as she was concerned. OBJECTIVE: VITAL SIGNS: Temperature 97.7, heart rate 67, blood pressure 149/77, respiratory rate 15, O2 saturation 98% on room air. RESPIRATORY: Essentially clear to auscultation bilaterally. CARDIAC: Regular rate and rhythm. NEUROLOGIC: Awake, alert. LABORATORY: WBCs 6,500, hemoglobin 12.7, hematocrit 36. D-dimer 520. Electrolytes are within normal limits. BUN 39, creatinine 1.92. C-reactive protein is 5. MICROBIOLOGY: Preliminary blood cultures show no growth after 24 hours. RADIOLOGY: Chest x-ray shows single AP portable upright view of the chest shows enlargement of the cardiomediastinal silhouette without pulmonary vascular congestion. Sternotomy wires are again seen. Apical lordotic projection. Mild areas of interstitial and ground glass airspace densities in the right mid to lower chest are again seen similar to previous exam suggesting pneumonia versus atelectasis. No new infiltrates are seen. Mild emphysematous changes to the lungs are again seen. No pleural effusion or pneumothorax. All other labs and films have been reviewed via the EMR. ASSESSMENT: 1. COVID pneumonitis. 2. Acute on chronic kidney disease. 3. History of atrial fibrillation. 4. Hypertension. 5. History of aortic stenosis. PLAN: We will continue present supportive care. The patient has mostly stabilized and I will repeat his lab and chest x-ray in the morning. If he continues to improve, we will discharge tomorrow. [facility][id number] [facility]
[2020-07-16] MEDS ORDERED: MAGNESIUM SULFATE PREMIX 2GM 2 GM in PREMIX BAG 1 BAG IVPB ONE (08:34)
[2020-07-16] MEDS: ALBUTEROL INHALER 64 PUFF/8GM INH SCH ×3 (09:00→17:45)
[2020-07-16] MEDS: CALCIUM CARBONATE-VITAMIN D 500 MG TAB PO SCH (10:57)
[2020-07-16] MEDS: guaiFENesin ER TAB 600 MG TAB PO SCH (10:57)
[2020-07-16] MEDS: DEXAMETHASONE INJ 10 MG/ML VIAL IV SCH (10:57)
[2020-07-16] MEDS: MAGNESIUM OXIDE 400 MG TAB PO SCH ×3 (10:57→14:12)
[2020-07-16] MEDS: REMDESIVIR 100 MG in SODIUM CHLORIDE 0.9% 250ML 250 ML IVPB SCH (10:57)
[2020-07-16] MEDS: ENOXAPARIN SODIUM 30 MG/0.3 ML SYG SUBCU SCH (14:12)
[2020-07-16 19:01] VITALS: BP 124/69; O2SAT 99
--- NOTE | 2020-07-17 15:42 | DS ---
SUPERVISING PHYSICIAN: Zain Braga MD DISCHARGE DIAGNOSES: 1. COVID pneumonitis. 2. Acute on chronic kidney disease. 3. History of atrial fibrillation. 4. Hypertension. 5. History of aortic stenosis. HISTORY OF PRESENT ILLNESS: This is an 84-year-old male patient who came to the Emergency Room with increased generalized weakness and shortness of breath. The patient was diagnosed with Covid pneumonitis several days prior to coming to the Emergency Room. The patient has significant dementia and his stated he was sick for several days prior to but was not tested until after . His oxygen saturation were greater than 90% and at they time they declined admission. The was afraid that due to his significant dementia that they could not be in separate rooms. They did not get Remdesivir and dexamethasone in the ER at that time and left before they were given they came home and he was noted to have coarse breath sounds and desaturations at home so came back to the Emergency Room. His repeat lab showed a normal white count of 9.700 but a mild left shift and his D-dimer 821. BUN was elevated as well as creatinine of 35 and 2.2. CRP was 5.4. The patient was referred for admission at that time. HOSPITAL COURSE: The patient was admitted to the hospital and placed in observation. He was placed on Remdesivir and dexamethasone as well as azithromycin and Rocephin. He had aggressive pulmonary hygiene with albuterol and was given Mucinex. He was initially given a judicious amount of fluids for his acute kidney injury. His home medications were restarted and over the next 24 hours he improved immensely. His was also admitted to the hospital and was in the room with him. He was placed on room air and had no problems with desaturations. He was continued on the routine Covid medications and he will be discharged home in stable condition, LABORATORY: WBCs remained stable at 10.3 with hemoglobin of 13 and hematocrit 37.3. He no longer has a shift on his differential. Neutrophils 75.1. Fibrinogen was 473 and now is 401. D-dimer was 832 and went down to 520 and today is 837. Electrolytes were basically within normal limits except today he had a low magnesium and was given oral supplementation. His other electrolytes were within normal limits. His BUN initially was 35 and went up to 44 but his creatinine on admission was 2.22 and is now 1.88. His creatinine kinase was 180, C-reactive protein initially was 5.4 and is now 2.2. Liver function tests were within normal limits. Preliminary blood cultures show no growth after 48 hours. RADIOLOGY: His initial chest x-ray showed faint ground glass opacity in the right lung base, either the middle or lower lobe that may relate to developing viral pneumonia. Lungs are mildly hyperinflated with paucity of vasculature in the apices consistent with emphysema and no infiltrate in the left lung base. Followup chest x-ray was single AP portable view showed enlargement of the cardiomediastinal silhouette without pulmonary vascular congestion, sternotomy wires again seen. Apical lordotic projection. Mild areas of interstitial and ground glass air space densities of the right mid to lower chest are again seen similar to previous exam suggesting pneumonia versus atelectasis. No new infiltrates are seen. Mild emphysematous changes to the lungs are again seen. No pleural effusion or pneumothorax. DISCHARGE PLAN: The patient will be discharged home in stable condition. He will have [facility]. He is to resume his previous diet and increase his activity as tolerated. He is to followup with Dr. Grove within the next one to two weeks. In addition to his routine medications, he is to continue with his guaifenesin and albuterol inhaler and I have given him a prescription for Cefdinir, dexamethasone and azithromycin. He is to return to the hospital or followup with Dr. Grove for any problems or complications. It may be beneficial to followup with his blood cultures at his followup visit. DISCHARGE MEDICATIONS: 1. Turmeric. 2. Metoprolol succinate. 3. Namzaric. 4. Magnesium oxide. 5. Co-enzyme Q10. 6. Calcium carbonate vitamin D. 7. Aspirin. 8. Guaifenesin. 9. Albuterol. 10. Cefdinir. 11. Dexamethasone. 12. Azithromycin. [facility][id number] [facility]
== END 2020-07-16 17:30 | disposition home health service (06) ==
LOC: ER 10:37 → MS 12:58
PROVIDERS: ADMIT Nurse Practitioner; ATTEND Nurse Practitioner Acute Care
DX: U07.1 COVID-19 (principal); J12.89 Other viral pneumonia; R09.02 Hypoxemia; N17.9 Acute kidney failure, unspecified; I12.9 Hypertensive chronic kidney disease with stage 1 through stage 4 chronic kidney disease, or unspecified chronic kidney disease; N18.9 Chronic kidney disease, unspecified; I48.91 Unspecified atrial fibrillation; F03.90 Unspecified dementia, unspecified severity, without behavioral disturbance, psychotic disturbance, mood disturbance, and anxiety; N40.0 Benign prostatic hyperplasia without lower urinary tract symptoms; M81.0 Age-related osteoporosis without current pathological fracture; Z79.899 Other long term (current) drug therapy; Z95.2 Presence of prosthetic heart valve; Z96.653 Presence of artificial knee joint, bilateral; Z87.442 Personal history of urinary calculi; Z87.891 Personal history of nicotine dependence
CPT/HCPCS: 96366; 96367; 96365; 96375 ×2; 96376; 96372 ×3; J0696; J1650 ×3; J7030; J7050 ×5; J1100 ×2; J0456 ×2; A4216 ×2; J7120; 85379 ×3; 80048; 82553; 80053 ×2; 36415 ×2; 85384 ×2; 82150; 80076; 86140 ×3; 85025 ×3; 82550 ×2; 87040 ×2; 82728; 83615; 83690; 83735 ×3; 85730; 85610; 84484; 83880; 83605; 71045 ×2; 94664; 94640 ×3; 94762 ×2; 99285; 93005; G0378